=== PATIENT | female | born 1965 | race Caucasian/White ===

== ENCOUNTER → 2016-09-07 | Outpatient (CLI) | payer OTHER | LOC: FIMAGING 13:04 | PROVIDERS: ATTEND Internal Medicine Rheumatology | DX: M20.12 Hallux valgus (acquired), left foot (principal); M21.612 Bunion of left foot; M19.072 Primary osteoarthritis, left ankle and foot; M72.2 Plantar fascial fibromatosis; M65.872 Other synovitis and tenosynovitis, left ankle and foot; M24.10 Other articular cartilage disorders, unspecified site; M22.42 Chondromalacia patellae, left knee; M25.462 Effusion, left knee ==

== ENCOUNTER → 2017-02-19 | Outpatient (CLI) | payer OTHER | LOC: FIMAGING 12:37 | PROVIDERS: ATTEND Internal Medicine Hematology & Oncology | DX: Z12.31 Encounter for screening mammogram for malignant neoplasm of breast (principal) | CPT/HCPCS: G0202 ==

== ENCOUNTER 2018-02-28 12:46 | Observation (INO) | payer OTHER ==
--- NOTE | 2018-02-28 12:57 | CPEKG ---
Test Reason : OPEN Blood Pressure : / mmHG Vent. Rate : 064 BPM Atrial Rate : 062 BPM P-R Int : 165 ms QRS Dur : 103 ms QT Int : 443 ms P-R-T Axes : 049 017 049 degrees QTc Int : 457 ms Sinus rhythm Confirmed by Winston Ovalles ([id number]) on 02/28/2018 12:57:41 PM Referred By: Confirmed By:Winston Ovalles
[2018-02-28 13:07] LABS: PLATELET COUNT 229 10^3/uL (150-400)
[2018-02-28] MEDS ORDERED: methylPREDNISolone SOD SUCC 125 MG/2 ML VIAL IVP ONE (13:21)
[2018-02-28] MEDS ORDERED: IOPAMIDOL (ISOVUE 370) 100 ML BTL IV ONE (13:23)
--- NOTE | 2018-02-28 13:26 | EDPHY ---
H & P Stated Complaint: syncopal Time Seen by Provider: 02/28/18 12:49 HPI/ROS: CHIEF COMPLAINT: Syncope HISTORY OF PRESENT ILLNESS: Patient is a 52-year-old female who is to Dr. Cotter. They were sitting at lunch this afternoon at 12:30 p.m. When she began to feel lightheaded. She described it as vertigo but states that it was different than previous episodes of benign positional vertigo. She also has a history of sinus tachycardia status post ablation several years ago. She states that she did not have any palpitations similar to those previous episodes. Her describes who is sitting at the table and looking pale and feeling clammy with fluttering eyelids and a head west. No seizure-like activity. She sat like this at the table for about 30 sec and was not responding to their voice. She then woke up and laid her head on the table. She did not seem postictal. No incontinence. She did not fall to the ground. She did have a mild viral syndrome last week but is now feeling better. No history of coronary artery disease. She is on aspirin but no other blood thinners. She has severe rheumatoid arthritis takes methotrexate. She does have history of some mild cervical radiculopathy. Paramedics were called and they are initial blood pressure is 106 systolic. She did not have any points on their stroke scale. Severity: Moderate Modifying factors: Improved with time REVIEW OF SYSTEMS: Constitutional: denies: chills, fever, recent illness, recent injury EENTM: denies: blurred vision, double vision, nose congestion Respiratory: denies: cough, shortness of breath Cardiac: See HPI Gastrointestinal/Abdominal: denies: abdominal pain, diarrhea, nausea, vomiting, blood streaked stools Genitourinary: denies: dysuria, frequency, hematuria, pain Musculoskeletal: denies: joint pain, muscle pain Skin: denies: lesions, rash, jaundice, bruising Neurological: denies: headache, numbness, paresthesia, tingling, dizziness, weakness Hematologic/Lymphatic: denies: blood clots, easy bleeding, easy bruising Immunologic/allergic: denies: HIV/AIDS, transplant 10 systems reviewed and negative except as noted - Physical Exam General Appearance: WD/WN, mild distress Eyes, Ears, Nose, Throat Exam: PERRL/EOMI, normal ENT inspection, pharynx normal no nystagmus Neck: non-tender, full range of motion, supple, normal inspection. No: stiff neck, tender lateral Cardiovascular/Chest: normal peripheral pulses, regular rate, rhythm Respiratory: chest non-tender, lungs clear, normal breath sounds. No: crackles , rhonchi Gastrointestinal/Abdominal: normal bowel sounds, non tender, soft Back Exam: normal inspection Extremity: normal range of motion, non-tender, normal inspection Mental Status: alert, oriented x 3 CN's Exam: normal hearing, normal speech, PERRL, normal eye position, normal gag reflex, normal pupil position, normal speech. No: facial asymmetry, facial droop, facial paresthesias, gaze palsy, tongue deviation to R, tongue deviation to L Coordination/Gait: Some trouble with clapping of her left hand. Some difficulty with finger to nose but obstructed by IV in the antecubital space Motor/Sensory: Very slight pronator drift on the left. No: motor deficit, sensory deficit, pronator drift (R), weak motor strength RUE, weak motor strength LUE, weak motor strength RLE, weak motor strength LLE DTR: tricep (R): 2+, tricep (L): 2+, knee (R): 2+, knee (L): 2+ Skin Exam: warm/dry, normal color Lymphatic: no adenopathy Source: Patient, Family, EMS Exam Limitations: No limitations - Personal History Current Tetanus Diphtheria and Acellular Pertussis (TDAP): Yes Tetanus Vaccine Date: CURRENT - Medical/Surgical History Hx Asthma: No Hx Chronic Respiratory Disease: No Hx Diabetes: No Hx Cardiac Disease: No Hx Renal Disease: No Hx Cirrhosis: No Hx Alcoholism: No Hx HIV/AIDS: No Hx Splenectomy or Spleen Trauma: No Other PMH: ablation 2008, rheumtoid arthritis, renauds, breast CA, sjograms, cervical stenosis - Family History Significant Family History: No pertinent family hx - Social History Smoking Status: Never smoked Alcohol Use: Sober Drug Use: None Constitutional: Initial Vital Signs Temperature (C) 36.5 C 02/28/18 12:51 Heart Rate 71 02/28/18 12:51 Respiratory Rate 16 02/28/18 12:51 Blood Pressure 149/90 H 02/28/18 12:51 O2 Sat (%) 98 02/28/18 12:51 O2 Delivery Mode Room Air Allergies/Adverse Reactions: latex [Latex] Allergy (Intermediate, Verified 11/19/13 18:22) Hives ciprofloxacin [From Cipro] Allergy (Unknown, Verified 11/19/13 18:22) Rash ciprofloxacin HCl [From Cipro] Allergy (Unknown, Verified 11/19/13 18:22) Rash erythromycin base [From Eryc] Allergy (Unknown, Verified 02/28/18 16:23) Vomiting iodine [Iodine] Allergy (Unknown, Verified 11/19/13 18:22) Hives Penicillins Allergy (Unknown, Verified 02/28/18 16:23) Unknown Home Medications: Medication Instructions Recorded Golimumab [SIMPONI] 50 mg SQ Q30D 12/16/14 Acyclovir [Zovirax 400 mg (*)] 400 mg PO BID 02/28/18 Aspirin [Aspirin 81mg (*)] 81 mg PO DAILY 02/28/18 Cholecalciferol (Vitamin D3) 5,000 unit PO DAILY 02/28/18 [Vitamin D3] Etodolac 300 mg PO DAILY 02/28/18 Gabapentin [Neurontin 100 MG (*)] 200 mg PO HS 02/28/18 Herbals/Supplements -Info Only 1 ea PO DAILY 02/28/18 Hydroxychloroquine Sulfate 200 mg PO BID 02/28/18 [Plaquenil 200 mg (*)] Loratadine [Claritin 10 mg] 10 mg PO DAILY 02/28/18 Methocarbamol [Robaxin 750 mg (*)] 750 mg PO HS 02/28/18 Methotrexate Sodium [Rheumatrex 25 mg PO AHUJA 02/28/18 2.5 mg (RX)] [place]-3 Fatty Acids [Fish Oil 1000 1,000 mg PO BID 02/28/18 mg (*)] Simvastatin [Zocor] 20 mg PO DAILY 02/28/18 metFORMIN HCL [Glucophage 500 mg 500 mg PO TIDMEAL 02/28/18 (*)] Medical Decision Making - Diagnostics EKG Interpretation: An EKG obtained and was read and documented in trace view. Please see trace view for full reading and report. Sinus rhythm, no acute ischemic changes Imaging Results: Imaging Impressions Head CT 02/28/18 13:16 Impression: Normal brain. No acute intracranial hemorrhage or evidence of ischemia. Findings were called to the Emergency Department at 02/28/2018 13:35. Negative results will be conveyed to Dr. ZAKIYA ARRIOLA. Head CTA 02/28/18 13:16 Impression: 1. Normal intracranial arterial circulation. No evidence of embolic disease or aneurysm. 2. Patent venous system. Findings discussed with Emergency Department physician, ZAKIYA ARRIOLA at 15:29. Neck CTA 02/28/18 13:16 Impression: 1. Widely patent carotid and vertebral arteries. No dissection or flow-limiting plaque. 2. Moderate cervical stenosis at the C5-C6 level due to exuberant osteophyte disk complex. Findings discussed with emergency department physician, Zakiya Arriola MD on February 28, 2018 at 3:29 p.m. Measurement of carotid stenosis is based on the residual internal carotid diameter with [place] Symptomatic Carotid Endarterectomy Trial (NASCET) based stenosis levels. Chest X-Ray 02/28/18 13:22 Impression: Clear lungs. No acute process. Brain MRI 02/28/18 14:05 Impression: Negative. No acute ischemia or intracranial hemorrhage. Findings discussed with Emergency Department physician, ZAKIYA ARRIOLA at 16:05. Imaging: Discussed imaging studies w/ automatic pilot mechanic Radiologist ED Course/Re-evaluation: We 1:35 p.m. The patient's noncontrast CT is unremarkable. I spoke with Dr. Greene from [place] who will evaluate her. She will need Benadryl and Solu- Medrol because she had a single hive last time she received contrast. The patient has reproducible pronator drift and some clumsiness with the left hand but no other neuro deficits. Blood pressure is improved. 1:45 p.m. The patient would like to hold off on Benadryl while she waits to talk to the neurologist because she states it makes her feel too tired. She and her understand the risks and benefits. 2:05 p.m. I spoke with Dr. Chapa who has evaluated the patient through the tele- prompter. He calculate an NIH stroke score of 2. She did not have any pronator drift for him but did state that she had slight paresthesias in that arm and that her left leg felt slightly weak. These are both new compared to my exam. He does not recommend tPA at this time but recommend CT angio, continued cardiac workup, MRI and likely admission. 3:30 p.m. I discussed the patient's CT and lab results with her . She is currently at MRI. We will admit either way. If the MRI is positive she will be admitted for stroke if it is negative she will be admitted for syncope with hypotension for monitoring. Have placed a page to the hospitalist service. 3:50 p.m. I discussed the case with Dr. Sandoval who will admit to the medical service. Differential Diagnosis: Partial list of the Differential diagnosis considered include but were not limited to; syncope, CVA, arrhythmia and although unlikely based on the history and physical exam, I also considered head injury, infection, seizure. Critical Care Time: Critical care time spent by me, Dr. Arriola exclusive with this patient was 45 minutes, exclusive of the PA time exclusive of procedures. The organ system that was at risk was neurologic and I gave diagnostics, consultation and admission to prevent worsening of the patient's condition - Data Points Laboratory Results: Laboratory Results 02/28/18 12:45 02/28/18 12:45 02/28/18 02/28/18 02/28/18 13:25 13:08 12:45 WBC RBC Hgb POC Hgb 11.9 gm/dL L gm/dL (12.6-16.3) Hct POC Hct 35 % L % (38-47) MCV MCH MCHC RDW Plt Count MPV Neut % (Auto) Lymph % (Auto) [place] % (Auto) Eos % (Auto) Baso % (Auto) Nucleat RBC Rel Count Absolute Neuts (auto) Absolute Lymphs (auto) Absolute Monos (auto) Absolute Eos (auto) Absolute Basos (auto) Absolute Nucleated RBC Immature Gran % Immature Gran # PT INR APTT D-Dimer 0.29 ug/mLFEU ug/mLFEU (0.00-0.50) POC Sodium 139 mEq/L mEq/L (135-145) Sodium POC Potassium 3.6 mEq/L mEq/L (3.3-5.0) Potassium POC Chloride 100 mEq/L mEq/L (97-110) Chloride Carbon Dioxide Anion Gap POC BUN 14 mg/dL mg/dL (7-23) BUN Creatinine POC Creatinine 0.9 mg/dL mg/dL (0.6-1.0) Estimated GFR Glucose POC Glucose 115 mg/dL H mg/dL (70-100) Calcium POC Troponin I 0.00 ng/mL ng/mL (0.00-0.08) Beta HCG, Qual 02/28/18 02/28/18 02/28/18 12:45 12:45 12:45 WBC RBC Hgb POC Hgb Hct POC Hct MCV MCH MCHC RDW Plt Count MPV Neut % (Auto) Lymph % (Auto) [place] % (Auto) Eos % (Auto) Baso % (Auto) Nucleat RBC Rel Count Absolute Neuts (auto) Absolute Lymphs (auto) Absolute Monos (auto) Absolute Eos (auto) Absolute Basos (auto) Absolute Nucleated RBC Immature Gran % Immature Gran # PT 12.8 SEC SEC (12.0-15.0) INR 0.94 (0.83-1.16) APTT 27.0 SEC SEC (23.0-38.0) D-Dimer POC Sodium Sodium 137 mEq/L mEq/L (135-145) POC Potassium Potassium 4.0 mEq/L mEq/L (3.3-5.0) POC Chloride Chloride 101 mEq/L mEq/L (97-110) Carbon Dioxide 25 mEq/l mEq/l (22-31) Anion Gap 11 mEq/L mEq/L (8-16) POC BUN BUN 15 mg/dL mg/dL (7-23) Creatinine 0.9 mg/dL mg/dL (0.6-1.0) POC Creatinine Estimated GFR > 60 Glucose 120 mg/dL H mg/dL (70-100) POC Glucose Calcium 9.7 mg/dL mg/dL (8.5-10.4) POC Troponin I Beta HCG, Qual NEGATIVE 02/28/18 12:45 WBC 8.06 10^3/uL 10^3/uL (3.80-9.50) RBC 3.71 10^6/uL L 10^6/uL (4.18-5.33) Hgb 12.2 g/dL L g/dL (12.6-16.3) POC Hgb Hct 34.2 % L % (38.0-47.0) POC Hct MCV 92.2 fL fL (81.5-99.8) MCH 32.9 pg pg (27.9-34.1) MCHC 35.7 g/dL g/dL (32.4-36.7) RDW 13.3 % % (11.5-15.2) Plt Count 229 10^3/uL 10^3/uL (150-400) MPV 9.8 fL fL (8.7-11.7) Neut % (Auto) 59.9 % % (39.3-74.2) Lymph % (Auto) 30.1 % % (15.0-45.0) [place] % (Auto) 7.2 % % (4.5-13.0) Eos % (Auto) 2.2 % % (0.6-7.6) Baso % (Auto) 0.4 % % (0.3-1.7) Nucleat RBC Rel Count 0.0 % % (0.0-0.2) Absolute Neuts (auto) 4.82 10^3/uL 10^3/uL (1.70-6.50) Absolute Lymphs (auto) 2.43 10^3/uL 10^3/uL (1.00-3.00) Absolute Monos (auto) 0.58 10^3/uL 10^3/uL (0.30-0.80) Absolute Eos (auto) 0.18 10^3/uL 10^3/uL (0.03-0.40) Absolute Basos (auto) 0.03 10^3/uL 10^3/uL (0.02-0.10) Absolute Nucleated RBC 0.00 10^3/uL 10^3/uL (0-0.01) Immature Gran % 0.2 % % (0.0-1.1) Immature Gran # 0.02 10^3/uL 10^3/uL (0.00-0.10) PT INR APTT D-Dimer POC Sodium Sodium POC Potassium Potassium POC Chloride Chloride Carbon Dioxide Anion Gap POC BUN BUN Creatinine POC Creatinine Estimated GFR Glucose POC Glucose Calcium POC Troponin I Beta HCG, Qual Medications Given: Metformin HCl (Glucophage) 500 mg PO TIDMEAL FORTUNATO Stop: 08/27/18 17:59 Last Admin: 02/28/18 19:03 Dose: 500 mg Methotrexate (Rheumatrex) 25 mg PO AHUJA FORTUNATO Stop: 08/27/18 16:59 Last Admin: 02/28/18 17:48 Dose: Not Given Discontinued Medications Diphenhydramine HCl (Benadryl Injection) 50 mg IVP EDNOW ONE Stop: 02/28/18 13:22 Last Admin: 02/28/18 14:12 Dose: 50 mg Methylprednisolone Sodium Succinate (Solu-Medrol) 125 mg IVP EDNOW ONE Stop: 02/28/18 13:22 Last Admin: 02/28/18 13:41 Dose: 125 mg Point of Care Test Results: Chemistry 02/28/18 02/28/18 13:25 13:08 POC Sodium 139 mEq/L mEq/L (135-145) POC Potassium 3.6 mEq/L mEq/L (3.3-5.0) POC Chloride 100 mEq/L mEq/L (97-110) POC BUN 14 mg/dL mg/dL (7-23) POC Creatinine 0.9 mg/dL mg/dL (0.6-1.0) POC Glucose 115 mg/dL H mg/dL (70-100) POC Troponin I 0.00 ng/mL ng/mL (0.00-0.08) ISTAT H&H 02/28/18 13:25 POC Hgb 11.9 gm/dL L gm/dL (12.6-16.3) POC Hct 35 % L % (38-47) Departure - Departure Disposition: [facility] Inpatient Acute Clinical Impression: Syncope Qualifiers: Syncope type: unspecified Qualified Code(s): R55 - Syncope and collapse Condition: Fair
[2018-02-28 13:40] LABS: INR 0.94 (0.83-1.16); PROTIME(PATIENT) 12.8 SEC (12.0-15.0)
[2018-02-28] MEDS ORDERED: ONDANSETRON DISINTEGRATING 4 MG TAB PO PRN (15:59)
[2018-02-28] MEDS ORDERED: ONDANSETRON 4 MG/2 ML VIAL IVP PRN (15:59)
[2018-02-28] MEDS ORDERED: ACETAMINOPHEN 325 MG TAB PO PRN (15:59)
[2018-02-28] MEDS ORDERED: NS W/ 20 KCl/L 1,000 ML IV SCH (16:00)
--- NOTE | 2018-02-28 16:27 | ASMTCMCOM ---
CM Note CM Note Notes: Pt presented to the Emergency Department s/p a syncopal event. Stroke alert activated upon arrival. History includes sinus tachycardia with ablation in 2007, severe RA, cervical radiculopathy, Raynaud's syndrome, breast CA. Pt is and lives with her , Dr. Cotter. Per notes, pt to be admitted for further evaluation and treatment. Discharge needs remain unclear, anticipate pt will likely discharge home independently when medically stable. CM will continue to follow. Discharge Plan: To be determined, likely independent Date Signed: 02/28/2018 04:26 PM Electronically Signed By:Jolynn Daley RN
[2018-02-28] MEDS ORDERED: METHOTREXATE 2.5 MG TAB PO SCH (17:00)
[2018-02-28] MEDS: metFORMIN HCL 500 MG TAB PO SCH (19:03)
--- NOTE | 2018-02-28 19:49 | PDGENHP ---
History and Physical - Chief Complaint Acute syncope - History of Present Illness Primary care provider: Dr. Rah Mcclellan Primary caponizer: Dr. Randy Parks Primary remarketing manager: Dr. Villaseñor Primary oncologist: Dr. Jose Urena HPI: 52-year-old female presenting with acute syncope characterized as unresponsiveness of approximately 30 sec duration on the day of presentation, witnessed by . Patient reports that on the day of presentation, she had had limited oral intake consisting of coffee and crackers, preceding the episode. She ate a large brunch with friends after worship at approximately 11: 45 a.m., and then at 12:30 p.m., the patient became visibly pale, clammy, experienced associated dizziness and then her noted that her eyes began to flutter, her head bobbed, and she became unresponsive to tactile and verbal stimuli. Duration of unresponsiveness was approximately 30 sec, and when the patient awoke, she reported that she felt dizzy, characterizing it as vertiginous. She did not appear to have postictal confusion but she did feel generally weak. She was brought to the emergency department as a stroke alert, and had notable left-sided pronator drift and NIH stroke scale score of 2. Given the low severity of her symptoms, no tPA was administered. History Information - Allergies/Home Medication List Allergies/Adverse Reactions: latex [Latex] Allergy (Intermediate, Verified 11/19/13 18:22) Hives ciprofloxacin [From Cipro] Allergy (Unknown, Verified 11/19/13 18:22) Rash ciprofloxacin HCl [From Cipro] Allergy (Unknown, Verified 11/19/13 18:22) Rash erythromycin base [From Eryc] Allergy (Unknown, Verified 02/28/18 16:23) Vomiting iodine [Iodine] Allergy (Unknown, Verified 11/19/13 18:22) Hives Penicillins Allergy (Unknown, Verified 02/28/18 16:23) Unknown Home Medications: Golimumab [SIMPONI] 50 mg SQ Q30D 12/16/14 [Last Taken 01/29/18] Acyclovir [Zovirax 400 mg (*)] 400 mg PO BID 02/28/18 [Last Taken 02/28/18] Aspirin [Aspirin 81mg (*)] 81 mg PO DAILY 02/28/18 [Last Taken 02/28/18] Cholecalciferol (Vitamin D3) [Vitamin D3] 5,000 unit PO DAILY 02/28/18 [Last Taken Unknown] Etodolac 300 mg PO DAILY 02/28/18 [Last Taken 02/28/18] Gabapentin [Neurontin 100 MG (*)] 200 mg PO HS 02/28/18 [Last Taken 02/27/18] Herbals/Supplements -Info Only 1 ea PO DAILY 02/28/18 [Last Taken Unknown] Hydroxychloroquine Sulfate [Plaquenil 200 mg (*)] 200 mg PO BID 02/28/18 [Last Taken 02/28/18] Loratadine [Claritin 10 mg] 10 mg PO DAILY 02/28/18 [Last Taken Unknown] Methocarbamol [Robaxin 750 mg (*)] 750 mg PO HS 02/28/18 [Last Taken Unknown] Methotrexate Sodium [Rheumatrex 2.5 mg (RX)] 25 mg PO AHUJA 02/28/18 [Last Taken ] [place]-3 Fatty Acids [Fish Oil 1000 mg (*)] 1,000 mg PO BID 02/28/18 [Last Taken Unknown] Simvastatin [Zocor] 20 mg PO DAILY 02/28/18 [Last Taken Unknown] metFORMIN HCL [Glucophage 500 mg (*)] 500 mg PO TIDMEAL 02/28/18 [Last Taken ] I have personally reviewed and updated: family history, medical history, social history, surgical history - Past Medical History Additional medical history: BPPV approximately 4 years ago. Breast cancer. Atrial tachycardia with ablation. Rheumatoid arthritis on methotrexate, Plaquenil and anti TNF therapy. Cervical radiculopathy. Right-sided lymphedema - Surgical History Additional surgical history: Right-sided lumpectomy with lymph node dissection, L5-S1 surgery - Family History Additional family history: Mother with CVA and CAD at age 54 - Social History Smoking Status: Never smoked Alcohol Use: Sober Drug Use: None Additional social history: The patient engages in exercise on a daily basis and does not experience any chest pain or shortness of breath Review of Systems Review of Systems: ROS: 10pt was reviewed & negative except for what was stated in HPI & below Constitutional: Reports: weakness Neurological: Reports: other (Dizziness, syncope) Physical Exam Physical Exam: Temp Pulse Resp BP Pulse Ox 36.9 C 86 18 127/80 H 95 02/28/18 19:35 02/28/18 19:35 02/28/18 19:35 02/28/18 19:35 02/28/18 19:35 Constitutional: no apparent distress, appears nourished, not in pain Eyes: PERRL, anicteric sclera, EOMI Ears, Nose, Mouth, Throat: moist mucous membranes, hearing normal, ears appear normal, no oral mucosal ulcers Cardiovascular: regular rate and rhythym, no murmur, rub, or gallop, No edema Respiratory: no respiratory distress, no rales or rhonchi, clear to auscultation Gastrointestinal: normoactive bowel sounds, soft, non-tender abdomen, no palpable masses, No distension Genitourinary: no bladder fullness, no bladder tenderness Neurologic: AAOx3, sensation intact bilaterally, CN II-XII Intact, other (No pronator drift, no dysmetria in upper or lower extremities), No weakness Psychiatric: interacting appropriately, not anxious, not encephalopathic, thought process linear Lab Data & Imaging Review 02/28/18 12:45 02/28/18 12:45 WBC 8.06 10^3/uL (3.80-9.50) 02/28/18 12:45 RBC 3.71 10^6/uL (4.18-5.33) L 02/28/18 12:45 Hgb 12.2 g/dL (12.6-16.3) L 02/28/18 12:45 POC Hgb 11.9 gm/dL (12.6-16.3) L 02/28/18 13:25 Hct 34.2 % (38.0-47.0) L 02/28/18 12:45 POC Hct 35 % (38-47) L 02/28/18 13:25 MCV 92.2 fL (81.5-99.8) 02/28/18 12:45 MCH 32.9 pg (27.9-34.1) 02/28/18 12:45 MCHC 35.7 g/dL (32.4-36.7) 02/28/18 12:45 RDW 13.3 % (11.5-15.2) 02/28/18 12:45 Plt Count 229 10^3/uL (150-400) 02/28/18 12:45 MPV 9.8 fL (8.7-11.7) 02/28/18 12:45 Neut % (Auto) 59.9 % (39.3-74.2) 02/28/18 12:45 Lymph % (Auto) 30.1 % (15.0-45.0) 02/28/18 12:45 [place] % (Auto) 7.2 % (4.5-13.0) 02/28/18 12:45 Eos % (Auto) 2.2 % (0.6-7.6) 02/28/18 12:45 Baso % (Auto) 0.4 % (0.3-1.7) 02/28/18 12:45 Nucleat RBC Rel Count 0.0 % (0.0-0.2) 02/28/18 12:45 Absolute Neuts (auto) 4.82 10^3/uL (1.70-6.50) 02/28/18 12:45 Absolute Lymphs (auto) 2.43 10^3/uL (1.00-3.00) 02/28/18 12:45 Absolute Monos (auto) 0.58 10^3/uL (0.30-0.80) 02/28/18 12:45 Absolute Eos (auto) 0.18 10^3/uL (0.03-0.40) 02/28/18 12:45 Absolute Basos (auto) 0.03 10^3/uL (0.02-0.10) 02/28/18 12:45 Absolute Nucleated RBC 0.00 10^3/uL (0-0.01) 02/28/18 12:45 Immature Gran % 0.2 % (0.0-1.1) 02/28/18 12:45 Immature Gran # 0.02 10^3/uL (0.00-0.10) 02/28/18 12:45 PT 12.8 SEC (12.0-15.0) 02/28/18 12:45 INR 0.94 (0.83-1.16) 02/28/18 12:45 APTT 27.0 SEC (23.0-38.0) 02/28/18 12:45 D-Dimer 0.29 ug/mLFEU (0.00-0.50) 02/28/18 12:45 POC Sodium 139 mEq/L (135-145) 02/28/18 13:25 Sodium 137 mEq/L (135-145) 02/28/18 12:45 POC Potassium 3.6 mEq/L (3.3-5.0) 02/28/18 13:25 Potassium 4.0 mEq/L (3.3-5.0) 02/28/18 12:45 POC Chloride 100 mEq/L (97-110) 02/28/18 13:25 Chloride 101 mEq/L (97-110) 02/28/18 12:45 Carbon Dioxide 25 mEq/l (22-31) 02/28/18 12:45 Anion Gap 11 mEq/L (8-16) 02/28/18 12:45 POC BUN 14 mg/dL (7-23) 02/28/18 13:25 BUN 15 mg/dL (7-23) 02/28/18 12:45 Creatinine 0.9 mg/dL (0.6-1.0) 02/28/18 12:45 POC Creatinine 0.9 mg/dL (0.6-1.0) 02/28/18 13:25 Estimated GFR > 60 02/28/18 12:45 Glucose 120 mg/dL (70-100) H 02/28/18 12:45 POC Glucose 115 mg/dL (70-100) H 02/28/18 13:25 Calcium 9.7 mg/dL (8.5-10.4) 02/28/18 12:45 POC Troponin I 0.00 ng/mL (0.00-0.08) 02/28/18 13:08 Beta HCG, Qual NEGATIVE 02/28/18 12:45 Visualized and Interpreted Chest x-ray results: Yes Chest X-Ray results: no infiltrate Visualized and Interpreted EKG results: Yes EKG additional interpertation: Normal sinus rhythm with Q-wave in lead 3 Assessment & Plan Assessment: 52-year-old female presents with acute syncopal episode Plan: 1. Syncope. Acute, new problem this provider, further workup indicated. Potential causes include vasovagal event versus TIA, she had some residual left pronator drift in the emergency department which has subsequently resolved -brain MRI demonstrates no CVA -get echocardiogram, cycle cardiac enzymes, check D-dimer -monitor on telemetry given history of atrial arrhythmia -neuro checks, get Neurology consult given her prolonged neurologic symptoms to consider upgrading her aspirin to 325 depending on impression of this event -counseled the patient and her regarding the likely cause of vasovagal syncope 2. Rheumatoid arthritis. Continue home medications 3. Atrial tachycardia. History of a tach, status post ablation Reviewed outside records including discharge summary by Dorothy Sousa from 04/16/2010 recounting patient's most recent hospitalization for EP study identifying a tach, echo 70% EF at that time, mild aortic insufficiency, trace mitral regurg Diet. Regular next prophylaxis. Low risk patient, SCDs Code. Full Disposition. Anticipated discharge is 03/01, pending further workup as outlined above. I have discussed patient's presentation with Dr. Skip Arriola, he had reported to me the persistent neurologic symptom, and we have agreed that observation overnight is appropriate.
[2018-02-28] MEDS ORDERED: METHOCARBAMOL 750 MG TAB PO SCH (21:00)
[2018-02-28] MEDS ORDERED: GABAPENTIN 100 MG CAP PO SCH (21:00)
[2018-02-28] MEDS: HYDROXYCHLOROQUINE SULFATE 200 MG TAB PO SCH (21:05)
[2018-02-28] MEDS: OMEGA-3 FATTY ACIDS 1,000 MG CAP PO SCH (21:06)
[2018-02-28] MEDS: ACYCLOVIR 400 MG TAB PO SCH (21:06)
[2018-03-01] MEDS: HYDROXYCHLOROQUINE SULFATE 200 MG TAB PO SCH (08:27)
[2018-03-01] MEDS: metFORMIN HCL 500 MG TAB PO SCH ×2 (08:28→13:50)
[2018-03-01] MEDS: ACYCLOVIR 400 MG TAB PO SCH (08:28)
[2018-03-01] MEDS: ATORVASTATIN CALCIUM 10 MG TAB PO SCH ×3 (08:28→13:52)
[2018-03-01] MEDS: CHOLECALCIFEROL VIT D3 2,000 UNITS TAB/CAP PO SCH ×2 (08:29→13:53)
[2018-03-01] MEDS: OMEGA-3 FATTY ACIDS 1,000 MG CAP PO SCH (08:30)
[2018-03-01] MEDS: ASPIRIN 81 MG CHEWABLE TAB PO SCH ×2 (08:30→13:52)
--- NOTE | 2018-03-01 08:55 | GCON ---
NEUROLOGIC CONSULTATION REFERRING PHYSICIAN: Frankie Angel MD HISTORY: The patient is a 52-year-old woman who is here in the hospital after an episode of decrease d responsiveness that occurred yesterday around 12:30. I spoke to her , Dr. Cotter, who s ays that he witnessed the event. She had a normal meal and later around 12:30 had a pale appearance, clammy and started feeling lightheaded, and she says she felt nausea. Her witnessed some ey e fluttering and head bobbing and unresponsiveness to tactile or verbal stimuli. He estimates this w as probably 30 seconds. When she awoke, she was a little confused and she says it felt like she was coming out of a dream and there was a little feeling of vertigo. There was not otherwise profound di sorientation or confusion. No abnormal motor movements were noted otherwise. She has never had a si milar episode. She said she generally felt hydrated and there was nothing unusual about the day afte r earlier brunch with friends at [employer]. She came to the emergency room, had workup with [facility] consultation. It was felt that stroke was u nlikely with a mild NIH stroke scale of 2 from a little pronator drift on the left. She did not rece savanah tPA related to the low stroke score and uncertainty of the cause, the relatively low suspicion fo r stroke after she had negative head CT, brain MRI, and CT angiogram of the head and neck. She has n ot had any arrhythmias documented since coming to the hospital and feels back to herself. REVIEW OF SYSTEMS: A 10-point review of systems was completed and unremarkable except for that noted above. PAST MEDICAL HISTORY: Also notable for BPPV 4 years ago, breast cancer, atrial tachycardia with abla tion, rheumatoid arthritis, on methotrexate, Plaquenil, anti TNF therapy, cervical radiculopathy, rig ht-sided lymphedema. Mother with heart attack and stroke at 54. SOCIAL HISTORY: No smoking and no alcohol. She is regularly active. 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 MEDICATIONS: At home have included Claritin, Robaxin, fish oil, vitamin D, Zocor, methotrexate, metf ormin, Plaquenil, gabapentin, aspirin, acyclovir. ALLERGIES: Latex, ciprofloxacin, erythromycin. PHYSICAL EXAM: VITAL SIGNS: 109/67, pulse of 87, respirations 18, temperature 37.1. GENERAL: She is well developed in no acute distress. EYES: Clear. NECK: Supple with no bruits or masses. CARD IAC: Regular rate and rhythm. No murmur. NIH stroke scale 0. HEENT: Pupils 3 mm and reactive. Ex traocular movements intact. Normal facial sensation and strength. Hearing is preserved. Motor exam normal muscle bulk and tone with 5/5 strength. Sensation is preserved for temperature and light leanne ch. Reflexes 1+ and symmetric. No pathologic reflexes. DIAGNOSTIC STUDIES: As outlined above revealed no large vessel stenoses or significant cerebral vasc ular disease and no intracranial lesions. IMPRESSION: A total unit time of 50 minutes. The patient's condition is most consistent with a vaso vagal phenomenon and associated neurologic symptomatology, but not a primary neurologic event such as seizure, TIA, or migraine. Therefore, I do not feel more workup is needed. I would not recommend a ny changes in her therapy from a neurologic perspective, and I spoke to her on the phone abou t this and he is comfortable with this approach. When she has completed her echocardiogram, it will be up to the hospitalist to make determinations on discharge planning and can follow up with me just as needed. /[id number]/MODL
[2018-03-01] MEDS ORDERED: CETIRIZINE 10 MG TAB PO SCH (09:00)
[2018-03-01] MEDS ORDERED: Herbals/Supplements -Info Only PO SCH (09:00)
[2018-03-01] MEDS ORDERED: ETODOLAC 300 MG PO SCH (09:00)
[2018-03-01 11:53] VITALS: BP 135/84
--- NOTE | 2018-03-01 15:42 | ECHO ---
[email or web address] [address] [address] Main: [phone] Fax: Transthoracic Echocardiogram Name: KRISSY LEACH MR#: [id number] Study Date: 03/01/2018 Study Time: 12:20 PM Date of : 1965 Age: 52 year(s) Height: 172.7 cm (68 in.) Weight: 78.93 kg (174 lb.) BSA: 1.93 m2 Gender: Female Examination: Echo Indication: TIA vs. CVA Image Quality: Contrast: Requested by: Frankie Angel BP: 135 mmHg/84 mmHg Heart Rate: Rhythm: Indication: TIA vs. CVA Procedure Staff Supervisor Sandblaster: Mel Bustillo RDCS Reading Physician: Timbo Robertson MD Requesting Provider: Conclusions: Normal size left ventricle. The ejection fraction is estimated to be 65-70 %. No regional wall motion abnormality. Normal diastolic LV function. An agitated saline study was performed and was negative for intracardiac shunting. The mitral valve is normal in appearance. Mild mitral valve regurgitation is present. The aortic valve is normal in appearance. Trivial to mild aortic valve regurgitation. Mild tricuspid regurgitation is present. The pulmonary artery pressure is normal. No prior study for comparison. Measurements: Chambers Valvular Assessment AV/MV Valvular Assessment TV/PV Normal Normal Normal Name Value Range Name Value Range Name Value Range Ao Ariana (MM): 3.2 cm (2.2 cm-3.7 AV Vmax: 1.65 m/s (1 m/s-1.7 TR Vmax: 2.19 mm/s ( - ) cm) m/s) TR PGmax: 19 mmHg ( - ) IVSd (2D): 0.7 cm (0.6 cm-1.1 AV meanP mmHg ( - ) syst. PAP: 24 mmHg ( - ) cm) AR (PHT): 803 ms ( - ) LVDd (2D): 4.8 cm (3.9 cm-5.3 MV E Vmax: 0.68 m/s ( - ) cm) MV A Vmax: 0.47 m/s ( - ) LVDs (2D): 3.1 cm (2.1 cm-4 MV E/A: 1.45 ( - ) cm) LVPWd (2D): 0.6 cm ( - ) LVEF (MOD4): 71 % (>=55 %) EF Range: 65-70 % Continued Measurements: Patient: KRISSY LEACH Study Date: 03/01/2018 Page 1 of 2 12:20 PM Chambers Valvular Assessment AV/MV Valvular Assessment TV/PV Name Value Name Value Name Value LADs: 3.5 cm MV E' Septal: 0.09 m/s CVP (est.): 5 mmHg LADs Lon.8 cm MV E/E' Septal: 7.30 LA Area: 19.4 cm2 MV E/E' Lateral: 6.90 AR Vmax: 4.73 cm/s Additional Vessels Name Value Ao Ascendin.8 cm Findings: Left Ventricle: Normal size left ventricle. No LV hypertrophy. Normal global systolic LV function. The ejection fraction is estimated to be 65-70 %. No regional wall motion abnormality. Normal diastolic LV function. Right Ventricle: Normal size right ventricle. Left Atrium: The left atrium is normal in size. An agitated saline study was performed and was negative for intracardiac shunting. Right Atrium: The right atrium is normal in size. Mitral Valve: The mitral valve is normal in appearance. Mild mitral valve regurgitation is present. Aortic Valve: The aortic valve is tri-leaflet. The aortic valve is normal in appearance. Trivial to mild aortic valve regurgitation. Tricuspid Valve: The tricuspid valve appears normal. Mild tricuspid regurgitation is present. The pulmonary artery pressure is normal. Pulmonic Valve: The pulmonic valve is normal in appearance and function. Trivial pulmonic valve regurgitation. Aorta: The aorta is normal. Pericardium: No pericardial effusion. (No Signature Object) Patient: KRISSY LEACH Study Date: 03/01/2018 Page 2 of 2 12:20 PM [id number]
--- NOTE | 2018-03-01 17:25 | PDDCSUM ---
Discharge Summary Discharge Summary: Date of Admission: 02/28/2018 Date of Discharge: 03/01/2018 Consultants: neurology Studies: MRI brain, TTE, CTA head/neck Discharge Diagnoses: 1. Vasovagal syncope 2. H/o atrial tachycardia s/p ablation 3. Rheumatoid arthritis 4. Breast cancer Brief Hospital Course: 52-year-old female presented after syncopal episode that was most consistent with a vasovagal event. She did have some mild pronator drift in the ED so a stroke work up was initiated which was completely negative; she did not receive tpa. Neurology was consulted who also felt that this was vasovagal in nature and had no further recommendations. This was her first such event. No medication changes were made. Medications: Please refer to EMR. No changes were made this admission. Follow Up Plan: 1. PCP clinic visit as scheduled 2. If syncopal episodes recur, consider cardiac event monitor or tilt table test Physical Exam: Vitals and telemetry reviewed, no arrhythmias. Alert and oriented without focal neurologic deficit. RRR without murmur, lungs clear, abdomen soft, no leg edema or JVD.
== END 2018-03-01 14:26 | disposition home or self-care (01) ==
LOC: EDUNIT# → F3N 16:58
PROVIDERS: ADMIT Internal Medicine; ATTEND Internal Medicine
DX: R55 Syncope and collapse (principal); M06.9 Rheumatoid arthritis, unspecified; Z23 Encounter for immunization; R00.0 Tachycardia, unspecified; Z85.3 Personal history of malignant neoplasm of breast; M48.02 Spinal stenosis, cervical region
CPT/HCPCS: 70450; 70496; 70498; 70551; 71046; 90471; 93005; 93306; 96372; 96374; 96375; 99291; G0378; 82435-PO; 82565-PO; 82947-PO; 84132-PO; 84295-PO; 84484-PO; 84520-PO; 85014-PO; G0008; J1200; J2930; Q9967